=== PATIENT | male | born 1960 | race Caucasian/White ===

== ENCOUNTER 2016-11-10 08:00 | Outpatient (RCR) | payer MEDICARE, MEDICAID | END 2016-11-23 | LOC: M CR 08:00 → EDSTATUS 08:27 | PROVIDERS: ATTEND Internal Medicine Cardiovascular Disease | DX: Z95.2 Presence of prosthetic heart valve (principal) ==

== ENCOUNTER 2016-12-15 09:28 | Outpatient (RCR) | payer MEDICARE, MEDICAID | END 2016-12-21 | LOC: M CR 09:28 | PROVIDERS: ATTEND Internal Medicine Cardiovascular Disease | DX: Z95.2 Presence of prosthetic heart valve (principal) ==

== ENCOUNTER 2016-12-27 08:19 | Inpatient (IN) | payer MEDICARE, MEDICAID ==
[~2016-12-27] VITALS: Ht 177.8 cm; Wt 111.6 kg
[2016-12-27] MEDS ORDERED: ASPIRIN 81 MG CHEW TABLET PO ONE (08:30)
[2016-12-27] MEDS ORDERED: ADENOSINE 6MG/2ML INJECTION (J0153) IV STA (08:32)
[2016-12-27] MEDS ORDERED: NS 500 ML IV ONE (08:45)
[2016-12-27] MEDS ORDERED: ADENOSINE 6MG/2ML INJECTION (J0153) As Ordered ONE (08:49)
[2016-12-27] MEDS ORDERED: METF850T PO (08:52)
[2016-12-27] MEDS ORDERED: ASPI81TA85 PO (08:52)
[2016-12-27] MEDS ORDERED: INVO300T PO (08:52)
[2016-12-27] MEDS ORDERED: LEVO25TA5 PO (08:52)
[2016-12-27] MEDS ORDERED: TRAD5TAB PO (08:52)
[2016-12-27] MEDS ORDERED: COLA100C PO (08:52)
[2016-12-27] MEDS ORDERED: ELIQ5TAB PO (08:52)
[2016-12-27] MEDS ORDERED: ALLO100T PO (08:52)
[2016-12-27] MEDS ORDERED: VENL75TA2 PO (08:52)
[2016-12-27] MEDS ORDERED: DEPA250T32 PO (08:52)
[2016-12-27] MEDS ORDERED: INSULANT SC (08:52)
[2016-12-27] MEDS ORDERED: VITA100072 PO (08:52)
[2016-12-27] MEDS ORDERED: METO-207 PO (08:52)
[2016-12-27] MEDS ORDERED: LOSA50TA20 PO (08:52)
[2016-12-27] MEDS ORDERED: AMIODARONE HCL 150 MG in APPROPRIATE DILUENT 1 EA IV STA ×2 (08:56→09:35)
[2016-12-27 08:58] LABS: BASO % 0.6 % (0.0-1.0); EOS # 0.1 K/mm3 (0.0-0.50); EOS % 1.6 % (0.0-3.0); LARGE UNSTAINED CELL # 0.2 K/mm3 (0.0-0.4); LARGE UNSTAINED CELL % 2.3 % (0.0-4.0); LYMPH % 34.7 % (24.0-44.0); MEAN CORPUSCULAR HEMOGLOBIN 29.9 pg (27.0-33.0); MEAN CORPUSCULAR HGB CONC 34.1 g/dl (32.0-36.5); MEAN CORPUSCULAR VOLUME 87.7 fl (80.0-96.0); MONO # 0.6 K/mm3 (0.0-0.8); MONO % 7.2 % (0.0-5.0); NEUTROPHILS # 4.6 K/mm3 (1.8-7.7); NEUTROPHILS % 53.6 % (36.0-66.0); PLATELET COUNT, AUTOMATED 168 k/mm3 (150-450); RED CELL DISTRIBUTION WIDTH 13.5 % (11.5-14.5); WHITE BLOOD COUNT 8.5 K/mm3 (4.0-10.0)
[2016-12-27] MEDS ORDERED: ENOXAPARIN 120 MG/0.8 ML SYR (J1650) SC ONE (09:00)
--- NOTE | 2016-12-27 09:03 | REP ---
CHEST, PORTABLE, SINGLE VIEW: No comparison. There is no evidence of acute infiltrate. No pleural effusion is seen. The heart is normal in size. The mediastinal silhouette is unremarkable. The visualized osseous structures are intact. Multiple sternal wires are present. IMPRESSION: No acute pulmonary disease. Signed by Dariusz Jara MD 12/27/2016 04:12 P
[2016-12-27 09:15] LABS: ANION GAP 15 MEQ/L (8-16); BLOOD UREA NITROGEN 26 MG/DL (7-18); CALCIUM LEVEL 9.4 MG/DL (8.5-10.1); CARBON DIOXIDE LEVEL 25 MEQ/L (21-32); CHLORIDE LEVEL 95 MEQ/L (98-107); CREATININE FOR GFR 1.27 MG/DL (0.70-1.30); GLOMERULAR FILTRATION RATE > 60.0 (>56); GLUCOSE, FASTING 222 MG/DL (70-105); POTASSIUM SERUM 4.2 MEQ/L (3.5-5.1); SODIUM LEVEL 135 MEQ/L (136-145)
[2016-12-27] MEDS ORDERED: METO50TA2 PO (09:45)
[2016-12-27] MEDS ORDERED: EFFE75CA75 PO (09:45)
[2016-12-27] MEDS ORDERED: DIVA500T9 PO (09:45)
[2016-12-27] MEDS ORDERED: CRES5TAB PO (09:48)
[2016-12-27] MEDS ORDERED: LASI40TA PO (09:48)
[2016-12-27] MEDS ORDERED: VITA-122 PO (09:48)
[2016-12-27] MEDS ORDERED: DEXTROSE 50% 50 ML SYRINGE IV PRN (10:30)
[2016-12-27] MEDS ORDERED: GLUCAGON FOR INJ 1 MG VIAL (J1610) SC PRN (10:30)
[2016-12-27] MEDS ORDERED: PERCOCET 5MG/325MG TAB PO PRN (10:30)
[2016-12-27] MEDS ORDERED: BISACODYL 5 MG TAB PO PRN (10:30)
[2016-12-27] MEDS ORDERED: GLUCOSE 4 GM CHEW TABLET PO PRN (10:30)
[2016-12-27] MEDS ORDERED: ONDANSETRON 4MG/2ML VIAL (J2405) IV PRN (10:30)
[2016-12-27] MEDS ORDERED: ONDANSETRON 4 MG TAB (S0181) PO PRN (10:30)
[2016-12-27] MEDS ORDERED: ACETAMINOPHEN TAB 650MG DOSE (2X325MG) PO PRN (10:30)
[2016-12-27] MEDS ORDERED: DOCUSATE SODIUM 100 MG CAP PO PRN (10:45)
[2016-12-27] MEDS: METOPROLOL TART 25 MG TABLET PO SCH ×3 (12:00→17:51)
[2016-12-27] MEDS: HumaLOG INSULIN (NovoLOG) PER UNIT SC SCH ×4 (12:00→20:23)
--- NOTE | 2016-12-27 15:24 | IPNPDOC ---
Date Seen The patient was seen on 12/27/16. Progress Note HISTORY AND PHYSICAL Date of admission: 12/27/2016 PCP: Dr. Fred Stratton Chief complaint: They told me I had a fast heart rate when I went to cardiac rehabilitation. HPI: 56-year-old male with cerebral palsy, diabetes mellitus type 2, hypertension, hyperlipidemia, gout, hyperthyroidism, history of nephrolithiasis status post lithotripsy, history of bovine aortic valve replacement who presented to cardiac rehabilitation today and was noted to have a heart rate of approximately 160. He was then sent to the emergency department. In the emergency department, it appeared that his rhythm was sinus tachycardia. He received a dose of adenosine, which did not affect his rate. The ER physician spoke with Dr. Smith, who recommended 2 doses of amiodarone. Neither of these affected his heart rate either. Dr. Greer suspects that he might have an underlying A. fib. Upon my interview with the patient, he tells me that he has overall been feeling well and in his normal state of health. He notes that he went to cardiac rehabilitation on Tuesday, and at that time, everything was normal and he had a normal heart rate. He does mention that yesterday when he was taking the trash out, he got a little bit short of breath and felt some tightness in his chest, but this resolved once he sat down. He felt like his normal self when he went to cardiac rehabilitation today, but he does state that right now, he is currently having approximately 1 out of 10 chest pain. He states he overall only feels "so-so, but he does not have anything specific that is bothering him. Past medical history: Cerebral palsy, diabetes mellitus type 2, hypertension, hyperlipidemia, gout, hyperthyroidism, history of nephrolithiasis status post lithotripsy Past surgical history: Bovine aortic valve replacement, tonsillectomy and adenoidectomy, umbilical hernia repair, lithotripsy Family history: Father is from kidney failure, mother is from a stroke; there is also a strong family history of alcoholism and coronary artery disease Social history: The patient currently lives with his , but he states that they're in the process of . 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 He does not drink any alcohol and he states he has never smoked any tobacco. Allergies: No known drug allergies Review of systems: General: Negative for fever and chills Eyes: Negative for vision changes and ocular discharge ENT: Negative For sore throat and nose bleed Cardiovascular: Negative for palpitations. Positive for chest pain Respiratory: Negative for cough and shortness of breath GI: Negative for nausea, vomiting, diarrhea, constipation Musculoskeletal: Positive for chronic back pain Skin: Negative for rash Neuro: Positive for dizziness. Negative for headache, numbness, tingling Psych: Negative for depression and suicidal ideation Endocrine: Negative for polyuria : Negative for dysuria Heme: Negative for bruising and bleeding Home meds: See below Physical exam: Vital signs: Vital Signs Date Time Temp Pulse Resp B/P Pulse Ox O2 Delivery O2 Flow Rate FiO2 12/27/16 08:28 163 18 119/81 96 Room Air 12/27/16 08:34 98.3 Gen.: awake, alert, no acute distress Eyes: Extraocular movements intact, normal sclera ENT: Moist mucous membranes Cardiovascular: Regular tachycardia Lungs: clear to auscultation bilaterally, no rales, rhonchi, or wheeze Abdomen: Soft, NT/ND, normal BS Musculoskeletal: normal range of motion Extremities: No peripheral edema Neuro: alert and oriented 3, normal speech, no focal deficits Psych: Normal mood with congruent affect Labs and radiology: See below Laboratory Tests 12/27/16 08:40 Calcium Level 9.4, Total Creatine Kinase 86, Red Blood Count 5.05, Mean Corpuscular Volume 87.7, Mean Corpuscular Hemoglobin 29.9, Mean Corpuscular Hemoglobin Concent 34.1, Red Cell Distribution Width 13.5, Neutrophils (%) (Auto ) 53.6, Lymphocytes (%) (Auto) 34.7, Monocytes (%) (Auto) 7.2 H, Eosinophils (% ) (Auto) 1.6, Basophils (%) (Auto) 0.6, Neutrophils # (Auto) 4.6, Lymphocytes # (Auto) 3.0, Monocytes # (Auto) 0.6, Eosinophils # (Auto) 0.1, Basophils # (Auto ) 0.0 Assessment and plan: 56-year-old male with cerebral palsy, diabetes mellitus type 2, hypertension, hyperlipidemia, gout, hyperthyroidism, history of nephrolithiasis status post lithotripsy, history of bovine aortic valve replacement who presented to cardiac rehabilitation today and was noted to have a heart rate of approximately 160. 1. Tachycardia: This appears to be a sinus tachycardia, but Dr. Greer suspects that when the rate is slowed down, we will see an underlying atrial flutter. We appreciate Dr. Greer's continued input. At this time, we'll continue the patient on treatment dose Lovenox. I have discussed the case with Dr. Greer, and he would like the patient started on a beta andre and does not want the patient continued on amiodarone. I increased his home metoprolol with hold parameters. Initial troponin is negative, but we'll continue to trend these. The patient will be monitored in the PCU. 2. Elevated creatinine: The patient's creatinine is 1.27. The last value in our EMR was approximately 4 years ago, at which time it was normal. We will continue to closely trend his creatinine. We will also hold his home ARB and metformin. 3. Hypothyroidism: The patient's TSH is quite elevated. We will continue his home Synthroid, and check a free T4. 4. Diabetes mellitus type 2: Sliding scale insulin while in-house. We will continue home Lantus 42 units at bedtime, and we will currently hold the patient 's home metformin, Tradjenta, and invokana. 5. Hypertension: The patient is on metoprolol at home. We will increase this, in an effort to try to control his rate. Continue home Lasix. 6. Hyperlipidemia: Continue home statin. 7. Gout: Continue home allopurinol. 8. History of bovine aortic valve replacement: Continue home aspirin. 9. Cerebral palsy: Continue home Depakote and Effexor. DVT prophylaxis: Treatment dose Lovenox Dispo: admit as an inpatient CODE STATUS: Full code VS, I&O, 24H, Fishbone Vital Signs/I&O Vital Signs Date Time Temp Pulse Resp B/P Pulse Ox O2 Delivery O2 Flow Rate FiO2 12/27/16 14:35 162 95 12/27/16 14:20 107/63 12/27/16 08:34 98.3 12/27/16 08:28 18 Room Air Laboratory Data 24H LABS Laboratory Tests 2 12/27/16 08:40: Activated Partial Thromboplast Time 25.8L, Anion Gap 15, B-Type Natriuretic Peptide 190H, White Blood Count 8.5, Red Blood Count 5.05, Hemoglobin 15.1, Hematocrit 44.3, Mean Corpuscular Volume 87.7, Mean Corpuscular Hemoglobin 29.9 , Mean Corpuscular Hemoglobin Concent 34.1, Red Cell Distribution Width 13.5, Platelet Count 168, Neutrophils (%) (Auto) 53.6, Lymphocytes (%) (Auto) 34.7, Monocytes (%) (Auto) 7.2H, Eosinophils (%) (Auto) 1.6, Basophils (%) (Auto) 0.6 , Neutrophils # (Auto) 4.6, Lymphocytes # (Auto) 3.0, Monocytes # (Auto) 0.6, Eosinophils # (Auto) 0.1, Basophils # (Auto) 0.0, Blood Urea Nitrogen 26H, Creatinine 1.27, Sodium Level 135L, Potassium Level 4.2, Chloride Level 95L, Carbon Dioxide Level 25, Calcium Level 9.4, Total Creatine Kinase 86, Creatine Kinase MB 2.3, Creatine Kinase MB Relative Index 2.67, Glomerular Filtration Rate > 60.0, Large Unclassified Cells # 0.2, Large Unclassified Cells % 2.3, Thyroid Stimulating Hormone (TSH) 8.370H, Troponin I < 0.02 12/27/16 10:47: Total Creatine Kinase 80, Creatine Kinase MB 1.9, Creatine Kinase MB Relative Index 2.37, Troponin I < 0.02 CBC/BMP Laboratory Tests 12/27/16 08:40 Calcium Level 9.4, Total Creatine Kinase 86, Red Blood Count 5.05, Mean Corpuscular Volume 87.7, Mean Corpuscular Hemoglobin 29.9, Mean Corpuscular Hemoglobin Concent 34.1, Red Cell Distribution Width 13.5, Neutrophils (%) (Auto ) 53.6, Lymphocytes (%) (Auto) 34.7, Monocytes (%) (Auto) 7.2 H, Eosinophils (% ) (Auto) 1.6, Basophils (%) (Auto) 0.6, Neutrophils # (Auto) 4.6, Lymphocytes # (Auto) 3.0, Monocytes # (Auto) 0.6, Eosinophils # (Auto) 0.1, Basophils # (Auto ) 0.0 ESTHELA MARIN Dec 27, 2016 15:24
[2016-12-27 16:07] VITALS: BP 126/70
[2016-12-27] MEDS ORDERED: SLF 3 ML SYR IV PRN (17:15)
--- NOTE | 2016-12-27 18:13 | HPEPDOC ---
Medical History and Physical Date of Admission Dec 27, 2016 at 10:28 History and Physical HISTORY AND PHYSICAL Date of admission: 12/27/2016 PCP: Dr. Fred Stratton Chief complaint: They told me I had a fast heart rate when I went to cardiac rehabilitation. HPI: 56-year-old male with cerebral palsy, diabetes mellitus type 2, hypertension, hyperlipidemia, gout, hyperthyroidism, history of nephrolithiasis status post lithotripsy, history of bovine aortic valve replacement who presented to cardiac rehabilitation today and was noted to have a heart rate of approximately 160. He was then sent to the emergency department. In the emergency department, it appeared that his rhythm was sinus tachycardia. He received a dose of adenosine, which did not affect his rate. The ER physician spoke with Dr. Smith, who recommended 2 doses of amiodarone. Neither of these affected his heart rate either. Dr. Greer suspects that he might have an underlying A. fib. Upon my interview with the patient, he tells me that he has overall been feeling well and in his normal state of health. He notes that he went to cardiac rehabilitation on Tuesday, and at that time, everything was normal and he had a normal heart rate. He does mention that yesterday when he was taking the trash out, he got a little bit short of breath and felt some tightness in his chest, but this resolved once he sat down. He felt like his normal self when he went to cardiac rehabilitation today, but he does state that right now, he is currently having approximately 1 out of 10 chest pain. He states he overall only feels "so-so, but he does not have anything specific that is bothering him. Past medical history: Cerebral palsy, diabetes mellitus type 2, hypertension, hyperlipidemia, gout, hyperthyroidism, history of nephrolithiasis status post lithotripsy Past surgical history: Bovine aortic valve replacement, tonsillectomy and adenoidectomy, umbilical hernia repair, lithotripsy Family history: Father is from kidney failure, mother is from a stroke; there is also a strong family history of alcoholism and coronary artery disease Social history: The patient currently lives with his , but he states that they're in the process of . 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 He does not drink any alcohol and he states he has never smoked any tobacco. Allergies: No known drug allergies Review of systems: General: Negative for fever and chills Eyes: Negative for vision changes and ocular discharge ENT: Negative For sore throat and nose bleed Cardiovascular: Negative for palpitations. Positive for chest pain Respiratory: Negative for cough and shortness of breath GI: Negative for nausea, vomiting, diarrhea, constipation Musculoskeletal: Positive for chronic back pain Skin: Negative for rash Neuro: Positive for dizziness. Negative for headache, numbness, tingling Psych: Negative for depression and suicidal ideation Endocrine: Negative for polyuria : Negative for dysuria Heme: Negative for bruising and bleeding Home meds: See below Physical exam: Vital signs: Vital Signs Date Time Temp Pulse Resp B/P Pulse Ox O2 Delivery O2 Flow Rate FiO2 12/27/16 08:28 163 18 119/81 96 Room Air 12/27/16 08:34 98.3 Gen.: awake, alert, no acute distress Eyes: Extraocular movements intact, normal sclera ENT: Moist mucous membranes Cardiovascular: Regular tachycardia Lungs: clear to auscultation bilaterally, no rales, rhonchi, or wheeze Abdomen: Soft, NT/ND, normal BS Musculoskeletal: normal range of motion Extremities: No peripheral edema Neuro: alert and oriented 3, normal speech, no focal deficits Psych: Normal mood with congruent affect Labs and radiology: See below Laboratory Tests 12/27/16 08:40 Calcium Level 9.4, Total Creatine Kinase 86, Red Blood Count 5.05, Mean Corpuscular Volume 87.7, Mean Corpuscular Hemoglobin 29.9, Mean Corpuscular Hemoglobin Concent 34.1, Red Cell Distribution Width 13.5, Neutrophils (%) (Auto ) 53.6, Lymphocytes (%) (Auto) 34.7, Monocytes (%) (Auto) 7.2 H, Eosinophils (% ) (Auto) 1.6, Basophils (%) (Auto) 0.6, Neutrophils # (Auto) 4.6, Lymphocytes # (Auto) 3.0, Monocytes # (Auto) 0.6, Eosinophils # (Auto) 0.1, Basophils # (Auto ) 0.0 Assessment and plan: 56-year-old male with cerebral palsy, diabetes mellitus type 2, hypertension, hyperlipidemia, gout, hyperthyroidism, history of nephrolithiasis status post lithotripsy, history of bovine aortic valve replacement who presented to cardiac rehabilitation today and was noted to have a heart rate of approximately 160. 1. Tachycardia: This appears to be a sinus tachycardia, but Dr. Greer suspects that when the rate is slowed down, we will see an underlying atrial flutter. We appreciate Dr. Greer's continued input. At this time, we'll continue the patient on treatment dose Lovenox. I have discussed the case with Dr. Greer, and he would like the patient started on a beta andre and does not want the patient continued on amiodarone. I increased his home metoprolol with hold parameters. Initial troponin is negative, but we'll continue to trend these. The patient will be monitored in the PCU. 2. Elevated creatinine: The patient's creatinine is 1.27. The last value in our EMR was approximately 4 years ago, at which time it was normal. We will continue to closely trend his creatinine. We will also hold his home ARB and metformin. 3. Hypothyroidism: The patient's TSH is quite elevated. We will continue his home Synthroid, and check a free T4. 4. Diabetes mellitus type 2: Sliding scale insulin while in-house. We will continue home Lantus 42 units at bedtime, and we will currently hold the patient 's home metformin, Tradjenta, and invokana. 5. Hypertension: The patient is on metoprolol at home. We will increase this, in an effort to try to control his rate. Continue home Lasix. 6. Hyperlipidemia: Continue home statin. 7. Gout: Continue home allopurinol. 8. History of bovine aortic valve replacement: Continue home aspirin. 9. Cerebral palsy: Continue home Depakote and Effexor. DVT prophylaxis: Treatment dose Lovenox Dispo: admit as an inpatient CODE STATUS: Full code Vital Signs see above Laboratory Data Labs 24H Laboratory Tests 2 12/27/16 08:40: Activated Partial Thromboplast Time 25.8L, Anion Gap 15, B-Type Natriuretic Peptide 190H, White Blood Count 8.5, Red Blood Count 5.05, Hemoglobin 15.1, Hematocrit 44.3, Mean Corpuscular Volume 87.7, Mean Corpuscular Hemoglobin 29.9 , Mean Corpuscular Hemoglobin Concent 34.1, Red Cell Distribution Width 13.5, Platelet Count 168, Neutrophils (%) (Auto) 53.6, Lymphocytes (%) (Auto) 34.7, Monocytes (%) (Auto) 7.2H, Eosinophils (%) (Auto) 1.6, Basophils (%) (Auto) 0.6 , Neutrophils # (Auto) 4.6, Lymphocytes # (Auto) 3.0, Monocytes # (Auto) 0.6, Eosinophils # (Auto) 0.1, Basophils # (Auto) 0.0, Blood Urea Nitrogen 26H, Creatinine 1.27, Sodium Level 135L, Potassium Level 4.2, Chloride Level 95L, Carbon Dioxide Level 25, Calcium Level 9.4, Total Creatine Kinase 86, Creatine Kinase MB 2.3, Creatine Kinase MB Relative Index 2.67, Glomerular Filtration Rate > 60.0, Large Unclassified Cells # 0.2, Large Unclassified Cells % 2.3, Thyroid Stimulating Hormone (TSH) 8.370H, Troponin I < 0.02 12/27/16 10:47: Total Creatine Kinase 80, Creatine Kinase MB 1.9, Creatine Kinase MB Relative Index 2.37, Troponin I < 0.02 12/27/16 16:34: Bedside Glucose (Misc Panel) 225H CBC/BMP Laboratory Tests 12/27/16 08:40 Calcium Level 9.4, Total Creatine Kinase 86, Red Blood Count 5.05, Mean Corpuscular Volume 87.7, Mean Corpuscular Hemoglobin 29.9, Mean Corpuscular Hemoglobin Concent 34.1, Red Cell Distribution Width 13.5, Neutrophils (%) (Auto ) 53.6, Lymphocytes (%) (Auto) 34.7, Monocytes (%) (Auto) 7.2 H, Eosinophils (% ) (Auto) 1.6, Basophils (%) (Auto) 0.6, Neutrophils # (Auto) 4.6, Lymphocytes # (Auto) 3.0, Monocytes # (Auto) 0.6, Eosinophils # (Auto) 0.1, Basophils # (Auto ) 0.0 Home Medications Scheduled Allopurinol (Allopurinol) 100 Mg Tab 300 MG PO DAILY Aspirin (Aspir-81) 81 Mg Tab 81 MG PO DAILY Canagliflozin (Invokana) 300 Mg Tab 300 MG PO DAILY Cholecalciferol (Vitamin D3) 1,000 Unit Tab 1,000 UNIT PO DAILY Cyanocobalamin (Vitamin B12) 1,000 Mcg Tab 1,000 MCG PO DAILY Divalproex Sodium (Divalproex Sodium ER) 500 Mg Tab 1,000 MG PO QHS Furosemide (Lasix) 40 Mg Tab 40 MG PO DAILY Insulin Glargine (Lantus) 1 Units/0.01 Ml Susp 42 UNITS SC QHS Levothyroxine Sodium (Synthroid) 25 Mcg Tab 25 MCG PO DAILY Linagliptin Base (Tradjenta) 5 Mg Tab 5 MG PO DAILY Losartan Potassium (Losartan Potassium) 50 Mg Tab 50 MG PO DAILY Metformin Hydrochloride (Metformin HCl) 850 Mg Tab 850 MG PO TID Metoprolol Tartrate (Metoprolol Tartrate) 50 Mg Tab 50 MG PO QHS CALLED AND VERIFIED WITH [employer] THAT THIS IS TARTRATE ONCE A DAY Rosuvastatin Calcium (Crestor) 5 Mg Tab 5 MG PO DAILY Venlafaxine Hydrochloride (Effexor Xr) 75 Mg Cap 75 MG PO DAILY Scheduled PRN Docusate Sodium (Colace) 100 Mg Cap 100 MG PO BID PRN PRN CONSTIPATION Allergies Coded Allergies: No Known Allergies (Unverified , 12/27/16) ESTHELA MARIN Dec 27, 2016 18:13
--- NOTE | 2016-12-27 19:55 | CR ---
DATE OF CONSULTATION: 12/27/2016 PRIMARY CARE PROVIDER: Dr. Fred Murillo REFERRING PHYSICIAN: Dr. Grady INDICATION: Atrial flutter. HISTORY OF PRESENT ILLNESS: Mr. Palacios is known to me. He is a pleasant 56-year-old man who has a history of coronary artery disease with remote history of angioplasty and stent placement to left anterior descending (LAD) and history of aortic valve replacement and ascending aortic aneurysm repair in October 2015. He presented to emergency room this morning as a transfer from cardiac rehabilitation. He came there for his routine session and was found to be markedly tachycardiac. He had prior session on Tuesday, during which time he was in normal sinus rhythm, and there were no problems. The patient tells me that he did not have any awareness of the palpitations or any other symptoms with the arrhythmia, but he does recall that he was going to empty his trash can on Tuesday, and as he did so he noted to be markedly short of breath, but he had no resting symptoms and did not think much of it. He does have a history of atrial flutter in October 2015. It was shortly after his open heart surgery. He was very difficult to rate control and eventually underwent transesophageal echocardiogram (AYAZ)/ cardioversion. He was maintained on amiodarone for a few months, but then the medication was discontinued, and later also anticoagulation was discontinued, and he has not had any relapse until currently. PAST MEDICAL HISTORY 1. Coronary artery disease as above. He had two stents LAD placed in 2013. His last cardiac catheterization was in September 2015, which showed patent stents and no significant obstructive disease. 2. History of aortic valve replacement with bioprosthesis on 10/27/2015, together with repair of ascending aortic aneurysm. 3. Hypertension. 4. Dyslipidemia. 5. Sleep apnea on continuous positive airway pressure (CPAP). 6. Type 2 diabetes. 7. Cerebral palsy SURGICAL HISTORY: Positive for: 1. Aortic valve replacement (AVR) as above. 2. Umbilical hernia repair. OUTPATIENT MEDICATIONS: - allopurinol 300 a day - aspirin 81 a day - vitamin B12 - Crestor 5 mg a day - divalproex sodium 500 two tablets a day - furosemide 40 mg a day - Lantus insulin as directed - levothyroxine 25 mg a day - losartan 50 a day - ranitidine 150 twice a day - metformin 850 three times a day - metoprolol 50 once a day - Tradjenta 5 mg a day - venlafaxine 75 mg in the morning - vitamin D3 ALLERGIES: He has no known medication allergies. SOCIAL HISTORY: The patient is . Has one child. Is disabled and retired. He never smoked. FAMILY HISTORY: His mother had a stroke. Father as a consequence of alcoholism. REVIEW OF SYSTEMS. Until this presentation, he denies any dyspnea, chest pain, paroxysmal nocturnal dyspnea (PND), orthopnea, palpitations, syncope or near syncope, abdominal pain, nausea, vomiting, diarrhea. No history of bleeding problems. No peripheral edema. He actually had good exertional tolerance, probably at least in part due to his regular attendance of cardiac rehabilitation program. PHYSICAL EXAMINATION: Mr. Palacios is a 56-year-old man who appears slightly older than his calendar age. He is alert, oriented, and appropriate. Obese. Last set of vital signs: Blood pressure 132/73, heart rate is 160, and his saturation 93% on room air. His fluid balance is approximately equal. His documented weight is 112 kg. He is alert, oriented, and appropriate. His jugular venous pulse (JVP) is not up. Lungs are clear to auscultation with good air movement. Heart exam reveals regular tachycardia. There is a very faint murmur at the aortic valve area. Second heart sounds are well preserved. No gallop. No rub. Abdomen is obese but soft and nontender. No organomegaly. Extremities have no edema, and peripheral pulses are preserved. Neurologically he is intact. LABORATORY: His CBC is normal. Basic metabolic panel: Sodium 135, potassium 4.2, BUN 26, creatinine 1.3, GFR is over 60, and glucose is 222. Two sets of cardiac enzymes are negative. His BNP is 190. TSH is mildly elevated at 8.37. His ECG reveals presence of atrial flutter with 2:1 conduction, ventricular rate 160 beats per minute. There is underlying right bundle branch block. No significant ST-T segment change. IMAGING STUDIES: His chest x-ray does not reveal any evidence for congestive heart failure. There is evidence for prior open heart surgery and aortic valve replacement. ASSESSMENT AND PLAN: Mr. Palacios is a 48-year-old man who presents with atrial flutter with uncontrolled rate and otherwise relatively asymptomatic status. The onset of arrhythmia is recent. He was in sinus mechanism on Tuesday, but I cannot rule out that he had paroxysmal episodes before, because he is clinically asymptomatic other than noted reduced exertional tolerance. He had this a year ago, during which time it was close to impossible to accomplish any form of rate control, and consequently we have no choice but to proceed directly with cardioversion. Because the onset of arrhythmias is clear and he has not been chronically anticoagulated, I tentatively plan to perform AYAZ cardioversion tomorrow. I explained the rationale to the patient, and he signed appropriate consent. We will keep him nothing by mouth after slight breakfast, and tentatively the procedure is scheduled for tomorrow afternoon. After quaker of sinus mechanism, I plan to refer him for electrophysiology evaluation and ablation. As far as interim management is concerned, he has been started on Lovenox in full therapeutic dose. He received a total of 300 mg of amiodarone in the emergency room, which had no affect on his rate, and he has been receiving beta blockers again without appreciable effect. This is consistent with this situation a year ago, and I do not believe that increasing the doses of antiarrhythmics and atrioventricular (AV) ameena blocking agents are likely to bring any significant improvement. JEAN CLAUDE
[2016-12-27 20:00] VITALS: BP 109/74
--- NOTE | 2016-12-27 20:38 | ECGEPIP ---
Stationary ECG Study [facility] - ED Test Date: 2016-12-27 Pat Name: FLAVIA BENDER Department: Room: - Gender: M Case Packer And Sealer: GRAHAM : 1960 Requested By: JESUS Pryor Order Number: [id number] Reading MD: Deyvi Chandler Measurements Intervals [place] Rate: 164 P: 95 [place]: 68 QRS: 138 QRSD: 132 T: -23 QT: 291 QTc: 482 Interpretive Statements SINUS TACHYCARDIA WITH SHORT [place] INTERVAL RIGHT BUNDLE BRANCH BLOCK LEFT POSTERIOR FASCICULAR BLOCK NO PRIORS Electronically Signed On 12-27-2016 20:38:01 EST by Deyvi Chandler
[2016-12-27] MEDS: ENOXAPARIN 120 MG/0.8 ML SYR (J1650) SC SCH (21:23)
[2016-12-27] MEDS: DIVALPROEX 500MG *ER* TAB PO SCH (21:24)
[2016-12-27] MEDS: SLF 3 ML SYR IV SCH (21:24)
[2016-12-27] MEDS: LEVEMIR (INSULIN DETEMIR) 1 UNITS/0.01ML SC SCH (21:24)
[2016-12-27 23:59] VITALS: BP 112/59
[2016-12-28] VITALS: BP 112/59; PULSE 155
[2016-12-28] MEDS: METOPROLOL TART 25 MG TABLET PO SCH ×3 (00:12→18:57)
--- NOTE | 2016-12-28 00:20 | REPUSA ---
CLINICAL HISTORY: Chest pain. COMMENTS: Single view of the chest reveals no evidence of active pleural or pulmonary parenchymal abnormality. The heart, mediastinum and pulmonary vessels appear normal. Unremarkable median sternotomy wires. IMPRESSION: NORMAL CHEST. Thank you for your kind referral of this patient.
[2016-12-28 04:00] VITALS: BP 104/64
[2016-12-28] MEDS: LEVOTHYROXINE 0.025 MG TAB (25 MCG) PO SCH (05:53)
[2016-12-28] MEDS: SLF 3 ML SYR IV SCH ×3 (05:53→21:27)
[2016-12-28 05:57] LABS: BASO # 0.1 K/mm3 (0.0-0.2); BASO % 0.9 % (0.0-1.0); EOS # 0.2 K/mm3 (0.0-0.50); EOS % 2.2 % (0.0-3.0); LARGE UNSTAINED CELL # 0.3 K/mm3 (0.0-0.4); LARGE UNSTAINED CELL % 3.8 % (0.0-4.0); LYMPH # 3.4 K/mm3 (1.5-4.5); LYMPH % 44.1 % (24.0-44.0); MEAN CORPUSCULAR HEMOGLOBIN 30.4 pg (27.0-33.0); MEAN CORPUSCULAR HGB CONC 34.4 g/dl (32.0-36.5); MEAN CORPUSCULAR VOLUME 88.4 fl (80.0-96.0); MONO # 0.6 K/mm3 (0.0-0.8); MONO % 8.3 % (0.0-5.0); NEUTROPHILS # 3.1 K/mm3 (1.8-7.7); NEUTROPHILS % 40.7 % (36.0-66.0); PLATELET COUNT, AUTOMATED 158 k/mm3 (150-450); RED CELL DISTRIBUTION WIDTH 13.5 % (11.5-14.5); WHITE BLOOD COUNT 7.6 K/mm3 (4.0-10.0)
[2016-12-28 06:12] LABS: ANION GAP 12 MEQ/L (8-16); BLOOD UREA NITROGEN 28 MG/DL (7-18); CALCIUM LEVEL 9.4 MG/DL (8.5-10.1); CARBON DIOXIDE LEVEL 25 MEQ/L (21-32); CHLORIDE LEVEL 99 MEQ/L (98-107); CREATININE FOR GFR 1.14 MG/DL (0.70-1.30); GLOMERULAR FILTRATION RATE > 60.0 (>56); GLUCOSE, FASTING 160 MG/DL (70-105); MAGNESIUM LEVEL 2.1 MG/DL (1.8-2.4); POTASSIUM SERUM 3.7 MEQ/L (3.5-5.1); SODIUM LEVEL 136 MEQ/L (136-145)
[2016-12-28 08:00] VITALS: BP 118/78
--- NOTE | 2016-12-28 08:26 | IPN ---
DATE: 12/28/2016 Mr. Palacios is feeling fine. He has no awareness of the palpitations. He denies shortness of breath or chest pain. Unfortunately, he remained in atrial flutter with 2:1 conduction and rate remains uncontrolled. Vital signs this morning, blood pressure 106/80. Heart rate as above. He is afebrile. Saturation 96% on room air. Fluid balance slightly negative. Weight is 112 kg. He is alert and oriented and appropriate. His jugular venous pulse (JVP) is not up. Lungs are clear. Heart exam reveals irregular tachycardia. No gallop, rub or murmur. Abdomen is obese, but soft. No peripheral edema. Neurologically, he is intact. CBC remains normal. Basic metabolic panel is also normal. Cardiac enzymes have been normal. ASSESSMENT AND PLAN: Mr. Palacios is a 56-year-old man who presented yesterday from cardiac rehab with atrial flutter with 2:1 conduction. It appears that amiodarone and metoprolol had no effect on the rate. Consequently, I plan to pursue transesophageal (TE) cardioversion later today. He has been anticoagulated with Lovenox. After this is accomplished, I foresee that he will be able to go home tomorrow morning. I will make a referral for electrophysiology for ablation as this is a relapse of the arrhythmia. Will put him on anticoagulation for the time being, most likely with Jona.
[2016-12-28] MEDS: ASPIRIN 81 MG ENTERIC TAB PO SCH (08:29)
[2016-12-28] MEDS: HumaLOG INSULIN (NovoLOG) PER UNIT SC SCH ×4 (08:29→21:26)
[2016-12-28] MEDS: ROSUVASTATIN 10 MG TAB (CRESTOR) PO SCH (08:29)
[2016-12-28] MEDS: FUROSEMIDE 40 MG TAB PO SCH (08:30)
[2016-12-28] MEDS: ENOXAPARIN 120 MG/0.8 ML SYR (J1650) SC SCH (08:30)
[2016-12-28] MEDS: ALLOPURINOL 300 MG TAB PO SCH (08:30)
[2016-12-28] MEDS: CYANOCOBALAMIN 500 MCG TAB PO SCH (08:30)
[2016-12-28] MEDS: VENLAFAXINE **XR** 75MG CAPSULE PO SCH (09:50)
[2016-12-28 12:00] VITALS: BP 101/68
[2016-12-28] MEDS ORDERED: CETACAINE SPRAY 20GM (FLOOR STOCK) As Ordered ONE (15:27)
[2016-12-28] MEDS ORDERED: LIDOCAINE VISCOUS 2% SOLN 15ML UDC As Ordered ONE (15:28)
[2016-12-28] MEDS ORDERED: PROPOFOL 500 MG/50 ML VIAL As Ordered ONE (17:28)
--- NOTE | 2016-12-28 17:56 | RO ---
DATE OF PROCEDURE: 12/28/2016 PREOPERATIVE DIAGNOSIS: Atrial flutter. POSTOPERATIVE DIAGNOSIS: PROCEDURE: Direct current (DC) cardioversion. SURGEON: Dr. Sherie Smith PRIVATE INQUIRY AGENT: None ANESTHESIA PROVIDED BY: Ricardo Polanco MD and Jostin Villareal CRNA. BRIEF HISTORY: Mr. Palacios is 56-year-old man who has a history of aortic valve replacement, coronary artery disease and a history of atrial flutter in 2016. He came to hospital with recurrent atrial flutter with rapid ventricular response and 2:1 conduction. In spite of trying amiodarone and metoprolol in fairly high doses, we were unable to effect his heart rate. Consequently, I decided to proceed with the cardioversion. He was treated while in the hospital with therapeutic dose of Lovenox. The procedure was preceded by transesophageal echocardiogram that revealed no evidence for left atrial appendage thrombus. PROCEDURE NOTE: Procedure was performed in the operating room. It was preceded by transesophageal echocardiogram, please see separate report. Anesthesiology administered propofol, he got a total of 220 mg total for both procedures. When appropriate level of sedation was accomplished, he was cardioverted with defibrillator patches applied in anterior position with 150 joules of energy in biphasic mode. One shock led to scientology of sinus mechanism. There were no immediate complications, and the patient tolerated the procedure well. He will be briefly monitored in the recovery room and then will return to the progressive care unit (PCU). I assume that he will resume oral intake in approximately 60 minutes. cc: Bella Grady [facility]
[2016-12-28] MEDS ORDERED: LR 1,000 ML IV SCH (18:00)
[2016-12-28] MEDS ORDERED: ONDANSETRON 4MG/2ML VIAL (J2405) IV PRN (18:00)
[2016-12-28 20:00] VITALS: BP 137/92
[2016-12-28] MEDS: LEVEMIR (INSULIN DETEMIR) 1 UNITS/0.01ML SC SCH (21:04)
[2016-12-28] MEDS: APIXABAN 5 MG TAB (ELIQUIS) PO SCH (21:04)
[2016-12-28] MEDS: DIVALPROEX 500MG *ER* TAB PO SCH (21:04)
--- NOTE | 2016-12-28 21:20 | T-ECHO ---
DATE OF PROCEDURE: 12/28/2016 INDICATION: Atrial flutter. ANESTHESIOLOGIST: Jostin Villareal CRNA Ed MD Sherri PROCEDURE: Transesophageal echocardiogram BRIEF HISTORY: Mr. Palacios is a 56-year-old man who has a history of aortic valve replacement with bioprosthesis and also a history of atrial flutter. He presented to [facility] on 12/27/16 with relapse of atrial flutter that was very difficult to rate control and consequently, I decided to pursue AYAZ, cardioversion. I explained the nature of the procedure, its possible complications to the patient the night before. He did sign appropriate consent. He was brought to operating room in fasting condition. PROCEDURE NOTE: The patient's posterior pharynx was anesthetized using viscous lidocaine and Cetacaine spray. Anesthesiology provided sedation. The patient received a total of 220 mg of IV propofol (combined AYAZ and cardioversion). When appropriate level of sedation was accomplished, probe was introduced into esophagus and later stomach without any difficulty. After appropriate images were obtained, it was withdrawn. There were no immediate complications and we proceeded with cardioversion, please see separate report. FINDINGS: Left ventricle is normal size. It is difficult to estimate left ventricular systolic function because the patient is in atrial flutter with ventricular rate 160 beats per minute, but it appears that there is diffuse global hypokinesis with at least moderate left ventricular (LV) systolic dysfunction. Same applies to right ventricle. Atria do not appear grossly enlarged. Left atrial appendage is relatively small and is free of thrombus. There is normal flow in both right and left-sided pulmonary veins accounting for atrial flutter. Atrial septum is thin and there does not appear to be [id number] or [id number] shunt based on 2D and color Doppler imaging. 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 Aortic bioprosthesis was relatively poorly seen. It appears intact. There is no apparent vegetation. There is no significant gradient and no insufficiency of the valve. Mitral valve also appears grossly normal. No significant stenosis or insufficiency seen. Pulmonic valve was poorly visualized but is functionally competent. There is trace tricuspid insufficiency. Unfortunately, quality of TR jet was not sufficient to adequately estimate pulmonary artery pressure. Aortic root, visualized segment of aortic arch and descending aorta revealed mild atherosclerotic plaques but no ulcerations and no masses. CONCLUSION: 1. Normal LV size with global hypokinesis and overall approximately moderate LV systolic dysfunction. This is in setting of very prominent tachycardia (160 bpm ) and consequently can be deceiving. 2. Normal function of aortic bioprosthesis. 3. Normal mitral valve function. 4. No significant tricuspid insufficiency or pulmonic insufficiency. 5. Intact atrial septum based on 2D and color Doppler imaging. 6. Left atrial appendix is relatively small and free of thrombus. 7. Mild atherosclerosis and thoracic aorta. COMMENT: Subacute bacterial endocarditis (SBE) prophylaxis is recommended. Please see separate report for direct current (DC) cardioversion. MTDD
[2016-12-28 23:59] VITALS: BP 112/58
[2016-12-29] MEDS: METOPROLOL TART 25 MG TABLET PO SCH ×2 (00:01→06:14)
[2016-12-29 04:00] VITALS: BP 123/67
[2016-12-29 05:52] LABS: BASO % 0.5 % (0.0-1.0); EOS # 0.2 K/mm3 (0.0-0.50); EOS % 3.1 % (0.0-3.0); LARGE UNSTAINED CELL # 0.1 K/mm3 (0.0-0.4); LARGE UNSTAINED CELL % 1.9 % (0.0-4.0); LYMPH # 2.3 K/mm3 (1.5-4.5); LYMPH % 33.2 % (24.0-44.0); MEAN CORPUSCULAR HEMOGLOBIN 31.1 pg (27.0-33.0); MEAN CORPUSCULAR HGB CONC 34.6 g/dl (32.0-36.5); MONO # 0.6 K/mm3 (0.0-0.8); MONO % 9.5 % (0.0-5.0); NEUTROPHILS # 3.3 K/mm3 (1.8-7.7); NEUTROPHILS % 51.8 % (36.0-66.0); PLATELET COUNT, AUTOMATED 141 k/mm3 (150-450); RED CELL DISTRIBUTION WIDTH 13.6 % (11.5-14.5); WHITE BLOOD COUNT 6.4 K/mm3 (4.0-10.0)
--- NOTE | 2016-12-29 06:01 | ECGEPIP ---
Stationary ECG Study [facility] Test Date: 2016-12-27 Pat Name: FLAVIA BENDER Department: Room: [place] [address] Gender: M Log Rider: RADHA : 1960 Requested By: ANTOINETTE PLASENCIA Order Number: [id number] Reading MD: Betty Rene Measurements Intervals [place] Rate: 151 P: 79 NM: 104 QRS: 144 QRSD: 142 T: -21 QT: 292 QTc: 464 Interpretive Statements ATRIAL FLUTTER 2:1 RIGHT BUNDLE BRANCH BLOCK LEFT POSTERIOR FASCICULAR BLOCK STTABN RHYTHM CHANGE C/W 12/27/16 Electronically Signed On 12-29-2016 6:01:47 EST by Betty Rene
[2016-12-29 06:04] LABS: ANION GAP 9 MEQ/L (8-16); BLOOD UREA NITROGEN 23 MG/DL (7-18); CALCIUM LEVEL 9.2 MG/DL (8.5-10.1); CARBON DIOXIDE LEVEL 30 MEQ/L (21-32); CHLORIDE LEVEL 99 MEQ/L (98-107); CREATININE FOR GFR 1.12 MG/DL (0.70-1.30); GLOMERULAR FILTRATION RATE > 60.0 (>56); GLUCOSE, FASTING 147 MG/DL (70-105); MAGNESIUM LEVEL 2.1 MG/DL (1.8-2.4); POTASSIUM SERUM 3.8 MEQ/L (3.5-5.1); SODIUM LEVEL 138 MEQ/L (136-145)
--- NOTE | 2016-12-29 06:06 | ECGEPIP ---
Stationary ECG Study [facility] Test Date: 2016-12-28 Pat Name: FLAVIA BENDER Department: Room: R7632-54 Gender: M Sports Intern: CHARLA : 1960 Requested By: Sherie Smith Order Number: [id number] Reading MD: Betty Rene Measurements Intervals [place] Rate: 81 P: 48 [place]: 175 QRS: 32 QRSD: 149 T: 12 QT: 386 QTc: 448 Interpretive Statements SINUS RHYTHM POSSIBLE LEFT ATRIAL ENLARGEMENT RIGHT BUNDLE BRANCH BLOCK NOW NSR C/W 12/27/16 LPHB NO LONGER PRESENT Electronically Signed On 12-29-2016 6:06:03 EST by Betty Rene
[2016-12-29 06:14] VITALS: BP 120/84
[2016-12-29] MEDS: LEVOTHYROXINE 0.025 MG TAB (25 MCG) PO SCH (06:14)
[2016-12-29] MEDS: SLF 3 ML SYR IV SCH (06:14)
[2016-12-29 08:00] VITALS: BP 113/62
[2016-12-29] MEDS: ROSUVASTATIN 10 MG TAB (CRESTOR) PO SCH (08:57)
[2016-12-29] MEDS: HumaLOG INSULIN (NovoLOG) PER UNIT SC SCH (08:57)
[2016-12-29] MEDS: ALLOPURINOL 300 MG TAB PO SCH (08:59)
[2016-12-29] MEDS: ASPIRIN 81 MG ENTERIC TAB PO SCH (08:59)
[2016-12-29] MEDS: CYANOCOBALAMIN 500 MCG TAB PO SCH (08:59)
[2016-12-29] MEDS: VENLAFAXINE **XR** 75MG CAPSULE PO SCH (08:59)
[2016-12-29] MEDS: APIXABAN 5 MG TAB (ELIQUIS) PO SCH (08:59)
[2016-12-29] MEDS: FUROSEMIDE 40 MG TAB PO SCH (08:59)
[2016-12-29] MEDS ORDERED: METO25TAB PO (09:22)
[2016-12-29] MEDS ORDERED: ELIQ5TAB PO (09:22)
--- NOTE | 2016-12-29 09:24 | IPN ---
DATE: 12/29/2016 Mr. Palacios is feeling fine. He denies any chest pain, palpitations or shortness of breath. I yesterday performed TE cardioversion and he has been maintaining sinus rhythm since. Vital signs: Blood pressure 113/62, heart rate in 70s, afebrile. Saturation 95% on room air. His fluid balance is about equal. Weight is 111 kg. He is alert and oriented and appropriate. Lungs are clear. Heart exam regular rhythm, widely splitting second heart sound. There is faint murmur at the aortic position that is systolic in nature. Abdomen is soft, obese but nontender. No peripheral edema. Neurologically, he is intact. LABORATORY AUGUSTIN: Normal basic metabolic panel. Normal CBC. ECG from yesterday afternoon confirmed presence of sinus rhythm. ASSESSMENT/PLAN: Mr. Palacios is a 56-year-old man who has history of aortic valve replacement and coronary artery disease with stent in LAD. He presented with atrial flutter with 2:1 conduction that was very difficult to rate control and consequently he underwent TE cardioversion. He can be discharged home on his current medications. I would continue anticoagulation with apixaban. I will see him in followup next week. Tentatively, I will make a referral to electrophysiology for ablation because this is a second time when he presented with atrial flutter.
--- NOTE | 2016-12-30 19:27 | DSES ---
DATE OF ADMISSION: 12/27/2016 DATE OF DISCHARGE: 12/29/2016 PRIMARY CARE PROVIDER: Dr. Stratton in [place]. PROCEDURE WRITER IN HOSPITAL: Dr. Smith. DISCHARGE DIAGNOSES: 1. Atrial flutter with 2:1 conduction block, underwent transesophageal echocardiogram (AYAZ) and cardioversion. 2. Coronary artery disease with left anterior descending (LAD) stent. 3. History of aortic valve replacement with bovine aortic valve. 4. Diabetes. 5. Hypertension. 6. Hyperlipidemia. 7. Gout. 8. History of nephrolithiasis status post lithotripsy. 9. Cerebral palsy. 10. Hypothyroidism. 11. Seizure disorder. DISCHARGE MEDICATIONS: - metoprolol 25 mg by mouth twice a day - Eliquis 5 mg by mouth twice a day - allopurinol 300 mg by mouth daily - aspirin 81 mg by mouth daily - Invokana 300 mg by mouth daily - vitamin D3 1000 units by mouth daily - vitamin B12 1000 mcg by mouth daily - divalproex sodium 1000 mg at bedtime - Colace 100 mg by mouth twice a day - Lasix 40 mg by mouth daily - Lantus 42 units at bedtime - Synthroid 25 mcg by mouth daily - Tradjenta 5 mg by mouth daily - metformin 850 mg by mouth three times a day - Crestor 5 mg by mouth daily - venlafaxine 75 mg by mouth daily HOSPITAL COURSE: This is a 56-year-old male who was sent to the emergency room from cardiac rehabilitation because he was noted to have a heart rate of 160. In the emergency room, it initially appeared that his rhythm was supraventricular tachycardia, so received a dose of adenosine which did not affect his rate. Cardiology was consulted and on their recommendation, he received two doses of amiodarone, which also did not affect the heart rate. Cardiology, Dr. Smith, then evaluated the patient and the patient was diagnosed with atrial flutter with 2:1 block. The patient was placed on telemetry and over the next 48 hours, there was no change in the heart rate. The patient was started on anticoagulation with Eliquis on admission. After 48 hours, the patient underwent AYAZ, along with cardioversion, with heart rate coming back to sinus rhythm in the range of 75-80. At present, patient asymptomatic, feeling better with stable vital signs and at his functional baseline. The patient is discharged home in stable condition. PHYSICAL EXAMINATION: VITAL SIGNS: Temperature 96.9, pulse 76, respiratory rate 19, blood pressure 113/62, pulse oximetry 94% on room air. GENERAL: Patient awake, alert, and oriented times three. HEENT: Normocephalic, atraumatic. Moist mucous membranes. Anicteric eyes. CHEST: Clear to auscultation. CARDIOVASCULAR: S1, S2. Regular. No rub, murmur or gallop. ABDOMEN: Soft. Nontender. Bowel sounds present. EXTREMITIES: No edema. LABORATORY DATA: WBC 6.4, hemoglobin 14.1, platelets 141. Sodium 138, potassium 3.8, chloride 99, bicarbonate 30, BUN 23, creatinine 1.1, glucose 147, calcium 9.2, magnesium 2.1. ECHOCARDIOGRAM: 1. Normal left ventricular size with global hypokinesia with overall approximately moderate left ventricular (LV) systolic dysfunction in the setting of prominent tachycardia of 160 beats per minute, so it could be falsely low estimation. 2. Normal function of aortic bioprosthesis. 3. No valvular abnormality. 4. Intact atrial septum. 5. Left atrial appendix is small and free of thrombus. 6. There is mild atherosclerosis of the thoracic aorta. DISPOSITION: The patient is discharged home in stable condition. DISCHARGE INSTRUCTIONS: The patient to followup with Dr. Smith in one week, and to followup with primary care provider in two weeks. Consistent carbohydrate diet. Activity as tolerated.
== END 2016-12-29 12:40 | disposition home health service (06) | DRG 310 ==
LOC: M ED 09:04 → M ED INP 10:28 → M PCU 16:07
PROVIDERS: ADMIT Hospitalist; ATTEND Internal Medicine Nephrology
PROC: 5A2204Z Restoration of Cardiac Rhythm, Single (ICD-10-PCS; principal; 2016-12-28 16:00)
DX: I48.92 Unspecified atrial flutter (principal); G80.9 Cerebral palsy, unspecified; I25.10 Atherosclerotic heart disease of native coronary artery without angina pectoris; G40.909 Epilepsy, unspecified, not intractable, without status epilepticus; E03.9 Hypothyroidism, unspecified; M10.9 Gout, unspecified; E78.5 Hyperlipidemia, unspecified; I10 Essential (primary) hypertension; E11.9 Type 2 diabetes mellitus without complications; Z79.899 Other long term (current) drug therapy; Z79.82 Long term (current) use of aspirin; Z79.4 Long term (current) use of insulin

== ENCOUNTER → 2017-01-12 | Outpatient (REF) | payer MEDICARE, MEDICAID ==
[~2017-01-12] MED LIST: ALLO100T PO; ASPI81TA85 PO; COLA100C PO; CRES5TAB PO; DEPA250T32 PO; DIVA500T9 PO; EFFE75CA75 PO; ELIQ5TAB PO; INSULANT SC; INVO300T PO; LASI40TA PO; LEVO25TA5 PO; LOSA50TA20 PO; METF850T PO; METO-207 PO; METO25TAB PO; METO50TA2 PO; TRAD5TAB PO; VENL75TA2 PO; VITA-122 PO; VITA100072 PO
[2017-01-12 09:56] LABS: FREE T4 1.02 NG/DL (0.76-1.46)
== END ==
LOC: M LAB REF 09:22
PROVIDERS: ATTEND Internal Medicine Endocrinology, Diabetes & Metabolism
DX: E07.89 Other specified disorders of thyroid (principal)

== ENCOUNTER 2017-05-30 15:15 | Outpatient (RCR) | payer MEDICARE, MEDICAID ==
[~2017-05-30 15:15] MED LIST changes: -COLA100C PO; +COLA100C5 PO; -METF850T PO; +METF850T4 PO; -METO-207 PO; +METO1TAB7 PO; +METO25TA4 PO; -METO25TAB PO; -METO50TA2 PO; +METO50TA7 PO
[2017-08-24] MEDS ORDERED: TRUL10IN SC (08:54)
== END 2017-06-23 ==
LOC: M CR 15:15
PROVIDERS: ATTEND Internal Medicine Cardiovascular Disease
DX: Z95.2 Presence of prosthetic heart valve (principal)

== ENCOUNTER 2017-07-01 08:59 | Outpatient (RCR) | payer MEDICARE, MEDICAID ==
[2017-08-24] MEDS ORDERED: TRUL10IN SC (08:54)
== END 2017-07-23 ==
LOC: M CR 08:59
PROVIDERS: ATTEND Internal Medicine Cardiovascular Disease
DX: Z51.89 Encounter for other specified aftercare (principal)

== ENCOUNTER 2017-08-10 09:19 | Outpatient (RCR) | payer MEDICARE, MEDICAID ==
[2017-08-24] MEDS ORDERED: TRUL10IN SC (08:54)
== END 2017-08-23 ==
LOC: M CR 09:19
PROVIDERS: ATTEND Internal Medicine Cardiovascular Disease
DX: Z95.2 Presence of prosthetic heart valve (principal)

== ENCOUNTER 2018-03-27 09:33 | Outpatient (RCR) | payer MEDICARE, MEDICAID | END 2018-04-22 | LOC: M CR 09:33 | DX: Z51.89 Encounter for other specified aftercare (principal); Z95.2 Presence of prosthetic heart valve ==

== ENCOUNTER 2018-04-17 14:43 | Outpatient (RCR) | payer MEDICARE, MEDICAID | END 2018-04-22 | LOC: M CR 14:43 | DX: Z51.89 Encounter for other specified aftercare (principal); Z95.2 Presence of prosthetic heart valve | CPT/HCPCS: 93797 ==

== ENCOUNTER 2018-05-29 10:07 | Outpatient (RCR) | payer MEDICARE, MEDICAID | END 2018-06-23 | LOC: M CR 10:07 | DX: Z95.2 Presence of prosthetic heart valve (principal) | CPT/HCPCS: 93797 ==

== ENCOUNTER 2018-07-06 09:34 | Outpatient (RCR) | payer MEDICARE, MEDICAID | END 2018-07-23 | LOC: M CR 09:34 | DX: Z95.2 Presence of prosthetic heart valve (principal) | CPT/HCPCS: 93797 ==

== ENCOUNTER 2018-09-07 08:46 | Emergency (ER) | payer MEDICARE, MEDICAID | END 2018-09-07 09:45 | disposition home or self-care (01) | LOC: M ED 08:46 | DX: S00.03XA Contusion of scalp, initial encounter (principal); W19.XXXA Unspecified fall, initial encounter; Y92.238 Other place in hospital as the place of occurrence of the external cause; Y93.89 Activity, other specified; Y99.9 Unspecified external cause status; E11.9 Type 2 diabetes mellitus without complications; I10 Essential (primary) hypertension; E78.5 Hyperlipidemia, unspecified; E05.90 Thyrotoxicosis, unspecified without thyrotoxic crisis or storm; Z95.3 Presence of xenogenic heart valve; Z79.4 Long term (current) use of insulin; Z79.02 Long term (current) use of antithrombotics/antiplatelets; Z79.899 Other long term (current) drug therapy | CPT/HCPCS: 70450 ==

== ENCOUNTER 2018-09-27 09:22 | Outpatient (RCR) | payer MEDICARE, MEDICAID ==
[~2018-09-27 09:22] MED LIST changes: +EFFE75CA2 PO; -EFFE75CA75 PO; +LASI20TA3 PO; -LASI40TA PO; +LASI40TA9 PO; -LOSA50TA20 PO; +LOSA50TA88 PO; +OMEP40CA2 PO; +TOPR50TA23 PO; +TRUL10IN SC; +XARE20TA PO
== END 2018-10-23 ==
LOC: M CR 09:22
PROVIDERS: ATTEND Internal Medicine Cardiovascular Disease
DX: Z95.4 Presence of other heart-valve replacement (principal)

== ENCOUNTER 2018-11-16 09:58 | Outpatient (RCR) | payer MEDICARE, MEDICAID | END 2018-11-23 | LOC: M CR 09:58 | PROVIDERS: ATTEND Internal Medicine Cardiovascular Disease | DX: Z95.2 Presence of prosthetic heart valve (principal) ==

== ENCOUNTER 2018-12-27 10:58 | Outpatient (RCR) | payer MEDICARE, MEDICAID ==
[~2018-12-27 10:58] MED LIST changes: +TOPR50TA PO; -TOPR50TA23 PO; +VITA100018 PO; -VITA100072 PO
== END 2019-01-21 ==
LOC: M CR 10:58
PROVIDERS: ATTEND Internal Medicine Cardiovascular Disease
DX: Z95.4 Presence of other heart-valve replacement (principal)

== ENCOUNTER 2019-01-29 11:53 | Outpatient (RCR) | payer MEDICARE, MEDICAID | END 2019-02-20 | LOC: M CR 11:53 | PROVIDERS: ATTEND Internal Medicine Cardiovascular Disease | DX: Z95.4 Presence of other heart-valve replacement (principal) ==

== ENCOUNTER 2019-03-05 09:35 | Outpatient (RCR) | payer MEDICAID, MEDICARE, SELFPAY | END 2019-03-23 | LOC: M CR 09:35 | PROVIDERS: ATTEND Internal Medicine Cardiovascular Disease | DX: Z95.4 Presence of other heart-valve replacement (principal) ==

== ENCOUNTER 2019-04-11 15:33 | Outpatient (RCR) | payer MEDICARE, MEDICAID | END 2019-04-22 | LOC: M CR 15:33 | PROVIDERS: ATTEND Internal Medicine Cardiovascular Disease | DX: Z95.2 Presence of prosthetic heart valve (principal) ==

== ENCOUNTER 2019-05-28 12:01 | Outpatient (RCR) | payer MEDICAID, MEDICARE, SELFPAY | END 2019-06-23 | LOC: M CR 12:01 | PROVIDERS: ATTEND Internal Medicine Cardiovascular Disease | DX: Z95.2 Presence of prosthetic heart valve (principal) ==

== ENCOUNTER 2019-07-25 10:41 | Outpatient (RCR) | payer MEDICARE, MEDICAID ==
[~2019-07-25 10:41] MED LIST changes: -OMEP40CA2 PO; +OMEP40CA97 PO
== END 2019-08-23 ==
LOC: M CR 10:41
PROVIDERS: ATTEND Internal Medicine Cardiovascular Disease
DX: Z95.4 Presence of other heart-valve replacement (principal)

== ENCOUNTER 2019-09-06 08:29 | Outpatient (RCR) | payer MEDICARE, MEDICAID | END 2019-09-22 | LOC: M CR 08:29 | PROVIDERS: ATTEND Internal Medicine Cardiovascular Disease | DX: Z51.89 Encounter for other specified aftercare (principal) ==

== ENCOUNTER 2019-11-19 09:36 | Outpatient (RCR) | payer MEDICARE, MEDICAID | END 2019-11-23 | LOC: M CR 09:36 | PROVIDERS: ATTEND Internal Medicine Cardiovascular Disease | DX: Z51.89 Encounter for other specified aftercare (principal) ==

== ENCOUNTER 2019-12-05 14:00 | Outpatient (RCR) | payer MEDICARE, MEDICAID | END 2019-12-22 | LOC: M CR 14:00 | PROVIDERS: ATTEND Internal Medicine Cardiovascular Disease | DX: Z95.2 Presence of prosthetic heart valve (principal); Z51.89 Encounter for other specified aftercare ==

== ENCOUNTER 2019-12-24 11:28 | Outpatient (RCR) | payer MEDICARE, MEDICAID | END 2020-01-22 | LOC: M CR 11:28 | PROVIDERS: ATTEND Internal Medicine Cardiovascular Disease | DX: Z51.89 Encounter for other specified aftercare (principal); Z95.820 Peripheral vascular angioplasty status with implants and grafts ==

== ENCOUNTER → 2020-05-23 | Outpatient (CLI) | payer MEDICARE, MEDICAID ==
[~2020-05-23] MED LIST changes: -ASPI81TA85 PO; +ASPI81TA86 PO
== END ==
LOC: M LABSMTC 10:00
PROVIDERS: ATTEND Physician Assistant
DX: Z11.59 Encounter for screening for other viral diseases (principal)
CPT/HCPCS: C9803; U0003

== ENCOUNTER → 2020-07-12 | Outpatient (CLI) | payer MEDICARE, MEDICAID | LOC: M LABSMTC 11:07 | PROVIDERS: ATTEND Anesthesiology | DX: Z01.812 Encounter for preprocedural laboratory examination (principal); Z20.828 Contact with and (suspected) exposure to other viral communicable diseases | CPT/HCPCS: C9803; U0003 ==

== ENCOUNTER 2020-07-17 05:59 | Day surgery (SDC) | payer MEDICARE, MEDICAID ==
[~2020-07-17] VITALS: Ht 172.7 cm; Wt 111.6 kg
[2020-07-17] MEDS ORDERED: LR 1,000 ML IV ONE (06:00)
[2020-07-17] MEDS ORDERED: propofoL 200 MG/20 ML VIAL As Ordered ONE (07:10)
[2020-07-17] MEDS ORDERED: LIDOCAINE 2% 100MG/5ML SDV (FOR ANES.) As Ordered ONE (07:10)
[2020-07-17] MEDS ORDERED: fentaNYL 100 MCG/2 ML INJECTION (J3010) As Ordered ONE (07:10)
[2020-07-17] MEDS ORDERED: MIDAZOLAM INJ 2MG/2ML VIAL (J2250 PER 1MG) As Ordered ONE (07:10)
[2020-07-17] MEDS ORDERED: CETACAINE SPRAY 5GM As Ordered ONE (07:11)
[2020-07-17] MEDS ORDERED: LIDOCAINE VISCOUS 2% SOLN 15ML UDC As Ordered ONE (07:11)
[2020-07-17] MEDS ORDERED: HumaLOG INSULIN (NovoLOG) PER UNIT As Ordered ONE (07:25)
[2020-07-17] MEDS ORDERED: HumaLOG INSULIN (NovoLOG) PER UNIT SC ONE (08:00)
[2020-07-17] MEDS ORDERED: LIDOCAINE 5% OINT 30 GM As Ordered ONE (08:10)
[2020-07-17 11:50] VITALS: BP 125/77
--- NOTE | 2020-07-20 13:23 | T-ECHO ---
DATE: 07/17/2020 INDICATIONS: Status post Watchman deployment to evaluate for its function and seal. PROCEDURE: Transesophageal echocardiogram. REFERRING PHYSICIAN: Sherie Smith MD ANESTHESIOLOGY: Bre Andrews CRNA BRIEF HISTORY: Mr. Palacios is pleasant gentleman who has a history of paroxysmal atrial fibrillation; due to difficulty tolerating anticoagulation, he underwent placement of Watchman into left atrial appendage on June 12, 2020. He is being brought for transesophageal echocardiogram (AYAZ) to evaluate for the position of the device and whether it does seal or not left atrial appendage from blood flow. The nature of the procedure, its possible complications and ramifications were discussed with the patient on an outpatient basis and he sign appropriate consent. I again went over the rationale for the procedure with the patient when he was waiting for the procedure itself. The patient understood and wanted to proceed. PROCEDURE NOTE: Transesophageal echocardiogram (AYAZ) was performed in the operating room. The patient presented in a fasting state. After appropriate time-out was taken and all necessary monitors were applied, his posterior pharynx was anesthetized initially by Cetacaine spray and then by viscous lidocaine. The patient was then positioned on left side and mask was applied. After anesthesiology provided sedation, probe was introduced into esophagus and later stomach without any difficulty. After all appropriate images were obtained, it was withdrawn. There were no immediate complications and the patient tolerated the procedure well. FINDINGS: The left ventricle has normal systolic function, estimated ejection fraction (EF) around 65 to 70%. No segmental wall motion abnormalities were appreciated. Right ventricle also so appears to have normal size and systolic function. Also both atria appear grossly normal. Mitral valve is structurally intact. It has normal mobility and no obvious degenerative abnormalities or prolapse. There is only trivial insufficiency based on color Doppler imaging. There is bioprosthetic valve in aortic position. It structurally appears intact; and by color Doppler imaging, there is no insufficiency. Peak gradient across the valve was 42 and mean gradient 25 mmHg indicative of mild stenosis. Tricuspid valve appears normal, only trivial insufficiency is seen. Unfortunately, quality of TR jet was not sufficient to adequately estimated pulmonary artery pressure. Pulmonic valve was relatively poorly visualized; but based on limited views, it appears normal. By color Doppler imaging, there is no stenosis or insufficiency. Atrium septum has normal anatomy. There is trivial communication with left to right shunt, most likely related to recent transseptal puncture. There is normal flow I both left-sided and right-sided pulmonary veins. Left atrial appendage is sealed with Watchman device. It is well seated. There is only trivial flow measuring only about 1 or 2 mm. There is apparent atherosclerosis in aortic arch and descending aorta, which is relatively mild. No ulcerations or thrombi are visualized. CONCLUSIONS: 1. Appropriate function of left atrial appendage (Watchman device). 2. Preserved left ventricular systolic function. 3. Mild stenosis of aortic bioprosthesis (mean gradient 25 mmHg), no insufficiency. 4. No significant additional valvular disease. 5. Trivial communication across atrial septum, which was to right shunt likely related to recent transseptal puncture. 6. Normal flow in pulmonary veins. 7. Mild atherosclerosis in thoracic aorta. COMMENT: Watchman is appropriately seated. The patient was instructed to discontinue Xarelto after he completes current supple and continue aspirin only. The remaining medications will be continued. He will be seen in follow up on July 25. He was instructed to call in the interim should he have any new problems or complications. JEAN CLAUDE
== END 2020-07-17 12:20 | disposition home or self-care (01) ==
LOC: M SDC 05:59
PROVIDERS: ATTEND Internal Medicine Cardiovascular Disease
DX: Z45.09 Encounter for adjustment and management of other cardiac device (principal); Z95.818 Presence of other cardiac implants and grafts; I48.91 Unspecified atrial fibrillation; E11.9 Type 2 diabetes mellitus without complications; E03.9 Hypothyroidism, unspecified; I10 Essential (primary) hypertension; M10.9 Gout, unspecified; Z98.61 Coronary angioplasty status; I25.2 Old myocardial infarction; Z79.01 Long term (current) use of anticoagulants; Z79.4 Long term (current) use of insulin; Z79.84 Long term (current) use of oral hypoglycemic drugs; Z79.899 Other long term (current) drug therapy
CPT/HCPCS: 93312; 93320; 93325; J2250; J3010

== ENCOUNTER → 2020-09-02 | Outpatient (REF) | payer MEDICARE, MEDICAID ==
[2020-09-03 13:58] LABS: APPEARANCE, URINE CLEAR (CLEAR); BACTERIA, URINE AUTO NEGATIVE (NEGATIVE); BILIRUBIN, URINE AUTO NEGATIVE (NEGATIVE); BLOOD, URINE BLOOD 2+ (NEGATIVE); COLOR, URINE YELLOW (YELLOW); GLUCOSE, URINE (UA) AUTO 3+ mg/dL (NEGATIVE); KETONE, URINE AUTO NEGATIVE (NEGATIVE); LEUKOCYTE ESTERASE, URINE AUTO NEGATIVE (NEGATIVE); MUCUS, URINE SMALL (NEGATIVE); NITRITE, URINE AUTO NEGATIVE (NEGATIVE); PROTEIN, URINE AUTO NEGATIVE (NEGATIVE); RBC, URINE AUTO 2 /HPF (0-3); SPECIFIC GRAVITY URINE AUTO 1.026 (1.002-1.035); SQUAMOUS EPITHELIAL CELL UR AU 0 /HPF (0-6); UROBILINOGEN, URINE AUTO 0.2 mg/dL (0.0-2.0); WBC, URINE AUTO 1 /HPF (0-3)
== END ==
LOC: M SMT 12:57
PROVIDERS: ATTEND Urology
DX: N20.0 Calculus of kidney (principal); R31.21 Asymptomatic microscopic hematuria
CPT/HCPCS: 81001; 87086; G0463

== ENCOUNTER → 2021-06-27 | Outpatient (CLI) | payer MEDICARE, MEDICAID ==
[~2021-06-27] MED LIST changes: +COVI2.5V IM; +ECOT81TA5 PO; +OMEP40CA4 PO; -OMEP40CA97 PO; +ROSU5TAB5 PO
== END ==
LOC: M LABSMTC 09:00
PROVIDERS: ATTEND Anesthesiology
DX: Z01.818 Encounter for other preprocedural examination (principal); Z11.52 Encounter for screening for COVID-19

== ENCOUNTER 2021-07-02 06:05 | Day surgery (SDC) | payer MEDICARE, MEDICAID ==
[~2021-07-02] VITALS: Ht 172.7 cm; Wt 104.3 kg
[2021-07-02] MEDS ORDERED: LIDOCAINE 2% 100MG/5ML SDV (FOR ANES.) As Ordered ONE (07:18)
[2021-07-02] MEDS ORDERED: propofoL 500 MG/50 ML VIAL As Ordered ONE (07:18)
[2021-07-02] MEDS ORDERED: CETACAINE SPRAY 5GM As Ordered ONE (07:20)
[2021-07-02] MEDS ORDERED: LIDOCAINE VISCOUS 2% SOLN 15ML UDC As Ordered ONE (07:21)
[2021-07-02] MEDS ORDERED: fentaNYL 100 MCG/2 ML INJECTION (J3010) As Ordered ONE (07:33)
[2021-07-02 09:30] VITALS: BP 116/63
--- NOTE | 2021-07-03 10:38 | T-ECHO ---
TRANSESOPHAGEAL ECHO DATE: 06/30/2021 REFERRING PHYSICIAN: Sherie Smith MD, and the [facility] at the [facility]. INDICATION: History of Watchman placement checking its position and function. ANESTHESIOLOGIST: Nikos Rhodes CRNA. BRIEF HISTORY: Mr. Palacios is a 61-year-old man who has a history of aortic valve replacement with bioprosthesis, paroxysmal atrial flutter status post ablation x2, history of Watchman placement, and underlying coronary artery disease. It was requested by the implanting automobile mechanic motor from [employer] that we verified the position of Watchman. I talked to the patient about the nature of the procedure and its risks on an outpatient basis. He did sign appropriate consent. I talked to him about the nature of the procedure again just prior to starting. PROCEDURE NOTE: Procedure was performed in the operating room. Patient presented in fasting condition. His posterior pharynx was anesthetized using Cetacaine spray and viscous lidocaine. After appropriate time out was taken and all monitors were applied, patient was positioned in the left lateral decubitus position. After sedation was administered, probe was passed into esophagus and later stomach without difficulty. After all appropriate images were obtained, it was withdrawn. There were no immediate complications, and patient tolerated the procedure well. FINDINGS: Left ventricle has normal systolic function, I estimate EF around 60 to 65%. No segmental wall motion abnormalities are appreciated. Right ventricle is also normal size and systolic function. Both atrial appear grossly normal. Atrial septum is intact based on two dimensional and color Doppler imaging. There is normal flow in both left and right-sided pulmonary veins. Watchman is in left atrial appendage. It is well seated. There is no flow apparent within the left atrium and left atrial appendage. Mitral valve is bicuspid. It appears normal in anatomy and has normal mobility. By color Doppler imaging, there is only trivial mitral insufficiency. Tricuspid valve also appears anatomically normal. Trace tricuspid insufficiency is seen. Unfortunately, quality of TR jet was not sufficient to adequately estimate pulmonary artery pressure. Pulmonic valve was poorly seen, and I cannot much comment on its structure. There is bioprosthetic valve in aortic position. It appears to be at least partially calcified, and there is some restriction of leaflet mobility. Based on color Doppler imaging, there is mild paravalvular insufficiency, and there is severe stenosis. Peak gradient across the valve was 102 and mean gradient was 59 mmHg. Calculated aortic valve area was 0.6 cm2. Aortic arch and visualized segment of ascending and descending aorta have mild atherosclerosis. CONCLUSIONS: 1. Preserved LV systolic function. 2. Trace mitral and tricuspid insufficiency. 3. Normal position and function of Watchman device. 4. Intact atrial septum. 5. Normal pulmonary vein flow. 6. Mild thoracic atherosclerosis. 7. Severe restenosis of aortic bioprosthesis with mean gradient 59 and peak gradient 102 mmHg and calculated ELI 0.6 cm2. Mild insufficiency of the valve is also noted. Results of the study were discussed with the patient. No medication changes were made. He will be seen in follow up in the office in approximately two weeks.
== END 2021-07-02 12:17 | disposition home or self-care (01) ==
LOC: M SDC 06:05
PROVIDERS: ATTEND Internal Medicine Cardiovascular Disease
DX: I48.0 Paroxysmal atrial fibrillation (principal); I10 Essential (primary) hypertension; E03.9 Hypothyroidism, unspecified; E11.9 Type 2 diabetes mellitus without complications; E78.5 Hyperlipidemia, unspecified; M10.9 Gout, unspecified; I25.10 Atherosclerotic heart disease of native coronary artery without angina pectoris; Z98.61 Coronary angioplasty status; Z86.73 Personal history of transient ischemic attack (TIA), and cerebral infarction without residual deficits; Z79.4 Long term (current) use of insulin; Z79.84 Long term (current) use of oral hypoglycemic drugs; Z79.899 Other long term (current) drug therapy
CPT/HCPCS: 93312; 93320; 93325; J3010

== ENCOUNTER → 2023-04-14 | Outpatient (CLI) | payer MEDICARE, MEDICAID ==
[~2023-04-14] MED LIST changes: +FARX1TAB5; +LOSA50TA28 PO; -LOSA50TA88 PO
== END ==
LOC: M SOG 08:53
PROVIDERS: ATTEND Orthopaedic Surgery
DX: M54.50 Low back pain, unspecified (principal)